=== PATIENT | female | born 1940 | race African-American/Black ===

== ENCOUNTER 2018-09-25 07:53 | Outpatient (CLI) | payer MEDICARE ==
[2018-09-25] MEDS ORDERED: Regadenoson 0.4 MG/5 ML SYRINGE ONE (13:25)
--- NOTE | 2018-09-26 09:37 | NM ---
EXAM: CARDIAC SPECT HISTORY: Chest pain TECHNIQUE: A myocardial perfusion scan was performed using the single isotope 2 day protocol with jes hnetium 99m sestamibi. [30 mCi] was injected intravenously for the rest exam followed by 30 mCi for the stress study. Pharmacologic stress with Lexiscan was monitored and interpreted by Dr. Lynne FINDINGS: Homogeneous tracer distribution is seen in the myocardial segments on stress and rest image s without fixed or reversible defects. Gated SPECT LVEF: 71% Wall motion exam: Normal IMPRESSION: Normal myocardial perfusion scan
== END 2018-09-25 07:54 | disposition home or self-care (01) ==
LOC: NM 07:53
PROVIDERS: ATTEND Internal Medicine
DX: R07.9 Chest pain, unspecified (principal)
CPT/HCPCS: 78452; 93017; A9500; J2785

== ENCOUNTER 2019-02-21 09:55 | Outpatient (CLI) | payer MEDICARE ==
--- NOTE | 2019-02-21 10:21 | RAD ---
XR Chest Pa Lat @ [facility] HISTORY: Dyspnea COMPARISON: 09/19/2015 FINDINGS: The heart size is normal. The lungs are well expanded without focal areas of consolidation, pneumothorax or pleural effusions. Chronic parenchymal changes again seen. IMPRESSION: No radiographic evidence of acute cardiopulmonary process.
== END 2019-02-21 09:56 | disposition home or self-care (01) ==
LOC: RAD 09:55
PROVIDERS: ATTEND Internal Medicine
DX: R06.00 Dyspnea, unspecified (principal)
CPT/HCPCS: 71046

== ENCOUNTER 2020-06-08 09:49 | Outpatient (CLI) | payer MEDICARE | END 2020-06-08 09:50 | disposition home or self-care (01) | LOC: BICRAD 09:49 | PROVIDERS: ATTEND Internal Medicine Critical Care Medicine | DX: R06.00 Dyspnea, unspecified (principal) | CPT/HCPCS: 71046 ==

== ENCOUNTER 2021-01-06 12:03 | Outpatient (CLI) | payer MEDICARE | END 2021-01-06 12:04 | disposition home or self-care (01) | LOC: BICMAMMO 12:03 | PROVIDERS: ATTEND Internal Medicine | DX: Z12.31 Encounter for screening mammogram for malignant neoplasm of breast (principal); Z80.3 Family history of malignant neoplasm of breast | CPT/HCPCS: 77063; 77067 ==

== ENCOUNTER 2021-10-25 08:24 | Outpatient (CLI) | payer MEDICARE | END 2021-10-25 08:25 | disposition home or self-care (01) | LOC: RAD 08:24 | PROVIDERS: ATTEND Internal Medicine Critical Care Medicine | DX: J45.32 Mild persistent asthma with status asthmaticus (principal) | CPT/HCPCS: 71046 ==

== ENCOUNTER 2022-07-25 13:43 | Outpatient (CLI) | payer MEDICARE | END 2022-07-25 13:44 | disposition home or self-care (01) | LOC: RAD 13:43 | PROVIDERS: ATTEND Internal Medicine Critical Care Medicine | DX: R06.00 Dyspnea, unspecified (principal) | CPT/HCPCS: 71046 ==

== ENCOUNTER 2023-01-25 09:34 | Outpatient (CLI) | payer MEDICARE | END 2023-01-25 09:35 | disposition home or self-care (01) | LOC: RAD 09:34 | PROVIDERS: ATTEND Internal Medicine Critical Care Medicine | DX: R06.00 Dyspnea, unspecified (principal); R91.8 Other nonspecific abnormal finding of lung field | CPT/HCPCS: 71046 ==

== ENCOUNTER 2023-02-07 09:07 | Outpatient (CLI) | payer MEDICARE | END 2023-02-07 09:08 | disposition home or self-care (01) | LOC: RAD 09:07 | PROVIDERS: ATTEND Internal Medicine Critical Care Medicine | DX: R06.00 Dyspnea, unspecified (principal) | CPT/HCPCS: 71046 ==

== ENCOUNTER 2023-08-28 09:47 | Outpatient (CLI) | payer MEDICARE | END 2023-08-28 09:48 | disposition home or self-care (01) | LOC: RAD 09:47 | PROVIDERS: ATTEND Internal Medicine Critical Care Medicine | DX: R06.00 Dyspnea, unspecified (principal); J98.4 Other disorders of lung | CPT/HCPCS: 71046 ==